=== PATIENT | male | born 1990 | race African-American/Black ===

== ENCOUNTER 2020-05-19 01:20 | Emergency (ER) | payer SELFPAY ==
[2020-05-19] MEDS ORDERED: Lidocaine Viscous Sol 2% 15 ml UD Cup ONE (02:27)
[2020-05-19] MEDS ORDERED: Mag-Al 1200 mg/1200 mg/30 ML UDCUP ONE (02:27)
== END 2020-05-19 03:07 | disposition home or self-care (01) ==
LOC: ERS 01:20
DX: R07.0 Pain in throat (principal); F17.210 Nicotine dependence, cigarettes, uncomplicated
CPT/HCPCS: 99281

== ENCOUNTER 2020-05-20 00:32 | Emergency (ER) | payer SELFPAY ==
[2020-05-20] MEDS ORDERED: Lidocaine Viscous Sol 2% 15 ml UD Cup ONE (01:14)
--- NOTE | 2020-05-20 07:18 | RAD ---
Exam: Chest one view HISTORY:Chest pain Comparison: 08/16/2005 FINDINGS: Cardiac silhouette: Normal Aorta: Unremarkable Pulmonary vessels: Normal Costophrenic angles: Clear LUNGS: No masses or consolidation. Pneumothorax: None Osseous abnormalities: None IMPRESSION: No acute cardiopulmonary process.
--- NOTE | 2020-05-23 13:52 | EKG ---
Test Reason : Blood Pressure : / mmHG Vent. Rate : 065 BPM Atrial Rate : 065 BPM P-R Int : 168 ms QRS Dur : 090 ms QT Int : 378 ms P-R-T Axes : 078 070 030 degrees QTc Int : 393 ms Normal sinus rhythm with sinus arrhythmia Normal ECG Confirmed by LIAM HAYS ([id number]), editor school photograph RYAN BARR ([id number]) on 05/23/2020 1:51:49 PM Referred By: Confirmed By:LIAM HAYS
== END 2020-05-20 01:51 | disposition home or self-care (01) ==
LOC: ERS 00:32
DX: R07.9 Chest pain, unspecified (principal); R07.0 Pain in throat; F17.210 Nicotine dependence, cigarettes, uncomplicated
CPT/HCPCS: 71045; 93005

== ENCOUNTER 2021-03-12 11:13 | Emergency (ER) | payer OTHER, SELFPAY | END 2021-03-12 13:02 | disposition home or self-care (01) | LOC: ERS 11:13 | DX: S60.221A Contusion of right hand, initial encounter (principal); F17.210 Nicotine dependence, cigarettes, uncomplicated; W26.8XXA Contact with other sharp object(s), not elsewhere classified, initial encounter; Y92.89 Other specified places as the place of occurrence of the external cause; Y99.0 Civilian activity done for income or pay ==

== ENCOUNTER 2021-03-30 07:14 | Emergency (ER) | payer SELFPAY | END 2021-03-30 07:40 | disposition home or self-care (01) | LOC: ERS 07:14 | DX: M79.641 Pain in right hand (principal); F17.210 Nicotine dependence, cigarettes, uncomplicated | CPT/HCPCS: 99283 ==